=== PATIENT | female | born 1955 | race Caucasian/White ===

== ENCOUNTER 2022-02-15 01:56 | Emergency (ER) | payer MEDICARE, OTHER | END 2022-02-15 03:43 | disposition home or self-care (01) | LOC: ERS 01:56 | DX: M26.601 Right temporomandibular joint disorder, unspecified (principal); I10 Essential (primary) hypertension; E03.9 Hypothyroidism, unspecified; K21.9 Gastro-esophageal reflux disease without esophagitis; E78.5 Hyperlipidemia, unspecified | CPT/HCPCS: 99282 ==

== ENCOUNTER 2022-08-16 20:39 | Emergency (ER) | payer MEDICARE, OTHER | END 2022-08-16 21:39 | disposition home or self-care (01) | LOC: ERS 20:39 | DX: I10 Essential (primary) hypertension (principal) | CPT/HCPCS: 93005 ==

== ENCOUNTER 2025-01-02 08:12 | Outpatient (CLI) | payer MEDICARE, OTHER ==
[2025-01-02 09:09] LABS: Estimated GFR - POC 80.0
[2025-01-02] MEDS ORDERED: Iopamidol 370 76% 100 ML VIAL ONE (13:42)
== END 2025-01-02 08:13 | disposition home or self-care (01) ==
LOC: CT 08:12
PROVIDERS: ATTEND Physician Assistant Medical
DX: K76.89 Other specified diseases of liver (principal); K80.20 Calculus of gallbladder without cholecystitis without obstruction; K21.9 Gastro-esophageal reflux disease without esophagitis; K59.00 Constipation, unspecified; D17.71 Benign lipomatous neoplasm of kidney; K86.9 Disease of pancreas, unspecified; D17.79 Benign lipomatous neoplasm of other sites; K82.8 Other specified diseases of gallbladder; K44.9 Diaphragmatic hernia without obstruction or gangrene; N28.9 Disorder of kidney and ureter, unspecified; M47.819 Spondylosis without myelopathy or radiculopathy, site unspecified; E66.9 Obesity, unspecified
CPT/HCPCS: 36415; 74170; 82565; Q9967